=== PATIENT | female | born 1945 | race Caucasian/White ===

== ENCOUNTER 2022-02-16 12:55 | Emergency (ER) | payer MEDICARE, SELFPAY ==
[2022-02-16] VITALS (19 sets, daily range): BP systolic 162–243; BP diastolic 76–116; PULSE 71–92; RESP 18; TEMP 35.8; O2SAT 94–97; BMI 37.5
[2022-02-16] MEDS: ONDANSETRON 4 MG ODT SL (13:29)
[2022-02-16 18:26] LABS: Bacteria Urine Moderate (10-30); RBC Urine 0-1/HPF (0-5/HPF); WBC Urine 0-1/HPF (0-5/HPF)
--- NOTE | 2022-02-16 18:58 | ED_ITS ---
HPI - Extremity Problem General Chief complaint: Extremity Problem,Nontraumatic Stated complaint: Nausea, Leg problems Time Seen by Provider: 02/16/22 18:01 Source: patient Mode of arrival: Wheelchair History of Present Illness HPI Narrative: Patient is a 76-year-old female who is here for evaluation of nausea. She is also here for pain in her left leg. She reports the pain is on the outside of her left leg. Is somewhat difficult for her described as sometimes she states that it is a cramping sensation and other times it is a constant pain. She does not have any pain in her back or in her upper leg. The pain in her leg is actua lly been going on for several months. She has seen her primary doctor. She was told that she may need an MRI. That has not been scheduled. She was seen at an outside emergency department and has a prescription for ketorolac. She states that opioid pain medications make her feel very nauseous. She also has seen a enterprise resource analyst that she had a positive PAULINA but was told that she does not have l upus. She reports no skin rashes. No specific trauma. Related Data Previous Rx's Medication Instructions Recorded tramadol 50 mg tablet 50 mg PO Q8H PRN pain #10 tabs 02/16/22 Allergies Allergy/AdvReac Type Severity Reaction Status Date / Time No Known Drug Allergies Allergy Verified 02/16/22 13:02 Review of Systems Constitutional Constitutional: Reports system reviewed and no additional complaints, except as documented Cardiovascular Cardiovascular: Reports system reviewed and no additional complaints, except as documented Respiratory Respiratory: Reports system reviewed and no additional complaints, except as documented Gastrointestinal Gastrointestinal: Reports system reviewed and no additional complaints, except as documented Musculoskeletal Musculoskeletal: Reports system reviewed and no additional complaints, except as documented Integumentary/Breasts Skin/Breast: Reports system reviewed and no additional complaints, except as documented Neurologic Neurologic: Reports system reviewed and no additional complaints, except as documented Hematologic/Lymphatic On Anticoagulants: No Patient History Social History Smoking Status: Unknown if ever smoked Smoking Status: Unknown if ever smoked alcohol intake frequency: holidays/special occasions only Substance Use Type: does not use Exam Initial Vital Signs Initial Vital Signs: Vital Signs Temperature 96.4 F L 02/16/22 13:02 Pulse Rate 71 02/16/22 13:02 Respiratory Rate 18 12/28/22 13:02 Blood Pressure 204/90 H 02/16/22 13:02 Pulse Oximetry 94 02/16/22 13:02 Oxygen Delivery Method 02/16/22 13:02 Const General: cooperative HENMT Head: normal to inspection and normocephalic Resp Effort & Inspection: normal respiratory effort Auscultation: clear to auscultation bilaterally Cardio Rate: regular rate Rhythm: regular rhythm GI Inspection: normal to inspection Skin General: no rashes or lesions noted Neuro General: patient alert, patient awake and moves all extremities Sensory Exam: no sensory deficits noted Extrem Other: Reported tenderness is on the calf/lateral aspect of the left lower extremity. Not particularly tender to palpation. Her left ankle and left knee are unremarkable. Course Orders Ordered: Discontinued Medications Ondansetron HCl (Ondansetron 4 Mg Odt) 4 mg SL NOW PRN PRN Reason: Nausea And Vomiting Last Admin: 02/16/22 13:29 Dose: 4 mg Documented By: ARAVIND Ondansetron HCl (Ondansetron 4 Mg Odt Prepack) 1 bottle MISC SEEINSTR ONE Stop: 02/16/22 19:26 Last Admin: 02/16/22 19:59 Dose: 1 bottle Documented By: KLAUDIA Tramadol HCl (Tramadol 50 Mg Prepack) 1 bottle MISC SEEINSTR ONE Stop: 02/16/22 19:25 Last Admin: 02/16/22 19:59 Dose: 1 bottle Documented By: KLAUDIA Vital Signs Vital signs: Vital Signs - 8 hr 02/16/22 18:45 02/16/22 18:46 02/16/22 19:00 Pulse Rate 88 Blood Pressure 186/86 H 166/76 H Pulse Oximetry 97 02/16/22 19:00 02/16/22 19:15 02/16/22 19:15 Pulse Rate 82 80 Blood Pressure 162/81 H Pulse Oximetry 96 96 02/16/22 19:27 02/16/22 19:30 Pulse Rate Blood Pressure 200/87 H Pulse Oximetry 97 MDM - Extremity (Nontraumatic) Lab Data Labs: Lab Results 02/16/22 Range/Units 17:20 Urine RBC 0-1/hpf (0-5/HPF) Urine WBC 0-1/hpf (0-5/HPF) Urine Bacteria Moderate (10-30) H (None) Urine Dip Bedside Urine Glucose Negative Bedside Urine Bilirubin - Negative Bedside Urine Ketone + 15 Urine Specific [place] 1.015 Bedside Urine Occult Blood +/- Bedside Urine pH 6.0 Bedside Urine Protein - Negative Bedside Urine Urobilinogen 0.2 Bedside Urine Leukocytes - Negative Esterase MDM Narrative Medical decision making narrative: Symptoms have been going on for months now. She is been evaluated by her primary doctor and also by another emergency department. Today there are no skin changes over the area. Low suspicion for fracture. Low suspicion for DVT. No indication of cellulitis. She recently had labs drawn she states they were unremarkable so that we will hold on that for now. Had a discussion with her regarding the symptoms. Informed her that either we need to try some pain medication and have to deal with the side effects of that versus her having to deal with the discomfort. She states she is never tried tramadol in the past so we will give that a try. Will have the patient contact her primary doctor for follow-up. She was given return precautions. She expressed understanding and agreement. Discharge Plan Departure Patient Disposition: Home Clinical Impression: Left leg pain Activity Restrictions/Additional Instructions: I do recommend that tomorrow you contact your primary doctor for a follow-up to discuss further workup to include ordering the MRI. Return to the emergency department for any new symptoms. Prescriptions: New tramadol 50 mg tablet 50 mg PO Q8H PRN (Reason: pain) Qty: 10 0RF Referrals: Betsey Gr MD [Primary Care Provider] - Stand Alone Forms: Patient Portal/API
[2022-02-16] MEDS: TRAMADOL 50 MG PREPACK 1 BOTTLE MISC (19:59)
[2022-02-16] MEDS: ONDANSETRON 4 MG ODT PREPACK 1 BOTTLE MISC (19:59)
== END 2022-02-16 20:11 | disposition home or self-care (01) ==
PROVIDERS: Emergency Medicine; Emergency Provider Emergency Medicine; Family Provider Family Medicine; PCP Surgery
DX: M79.605 Pain in left leg (principal); R11.0 Nausea
CPT/HCPCS: 81003; 81015; 87077; 87086; 87186; 99283

== ENCOUNTER → 2022-04-16 14:14 | Outpatient (CLI) | payer MEDICARE, SELFPAY ==
--- NOTE | 2022-04-16 14:17 | DI.MRI.S_ITS ---
PROCEDURE: MR LUMBAR SPINE WO CON INDICATIONS: Radiculopathy, lumbar region TECHNIQUE: Noncontrast sagittal T1 spin echo and T2 fast echo, sagittal STIR, and T2 fast spin echo through the lumbar spine. In cases with scoliosis, additional coronal T2 fast spin echo may be performed. COMPARISON: None. FINDINGS: Image quality: Excellent. Alignment and Curvature: There is normal bony alignment. Bone Marrow: Marrow is of normal overall signal. No acute vertebral body compression fractures. Spinal Cord: Conus medullaris terminates at the T12-L1 level. Visualized cord demonstrates normal signal and size. Paraspinous Soft Tissues: No paravertebral masses. T12-L1: Normal appearance. L1-L2: Loss of disc signal is seen. No disc bulge, canal stenosis or neural foraminal narrowing. L2-L3: Loss of disc height and disc signal is seen. Mild broad-based disc bulge is seen. No significant canal stenosis or neural foraminal narrowing. L3-L4: Loss of disc signal is seen. Broad-based disc bulge and bilateral facet arthrosis with hypertrophy of ligamentum flavum is seen. There is mild central canal stenosis, no significant neural foraminal narrowing. L4-L5: Loss of disc signal is seen. Broad-based disc bulge and bilateral facet arthrosis is seen with a 1 x 0.8 x 1.5 cm cystic structure adjacent to medial aspect of left facet joint causing moderate to severe impingement of left neural foramen and [id number] central canal stenosis. Bulging disc likely contacting left L5 nerve root. No significant right-sided neural foraminal narrowing. L5-S1: Broad-based disc bulge and bilateral facet arthrosis is seen without significant central canal stenosis. Mild bilateral neural foraminal narrowing is seen. IMPRESSION: 1. Possible 1 x 0.8 x 1.5 cm left perineural cyst at L4-5 level versus ganglion cyst associated with left L4-5 facet joint causing [id number] central canal stenosis and moderate to severe left-sided neural foraminal narrowing. 2. Mild degenerative disc disease at L2-3, L3-4 and L5-S1 levels as described above. 3. No marrow edema. No acute compression fracture or spondylolisthesis. Dictated by: Elio Comer M.D. on 04/18/2022 at 9:45 Approved by: Elio Comer M.D. on 04/18/2022 at 10:53
== END ==
PROVIDERS: Family Provider Family Medicine; PCP Surgery; Referring Provider Neurological Surgery; Visit Provider Neurological Surgery
DX: M51.16 Intervertebral disc disorders with radiculopathy, lumbar region (principal); M51.17 Intervertebral disc disorders with radiculopathy, lumbosacral region
CPT/HCPCS: 72148

== ENCOUNTER → 2023-01-30 10:27 | Outpatient (CLI) | payer MEDICARE, SELFPAY | PROVIDERS: Family Provider Family Medicine; PCP Internal Medicine; Referring Provider Internal Medicine; Visit Provider Internal Medicine | DX: R06.02 Shortness of breath (principal); Z87.891 Personal history of nicotine dependence; J98.8 Other specified respiratory disorders | CPT/HCPCS: 94060; 94726; 94729 ==

== ENCOUNTER → 2023-07-25 09:00 | Outpatient (CLI) | payer MEDICARE, SELFPAY ==
--- NOTE | 2023-07-25 09:02 | DI.MRI.S_ITS ---
PROCEDURE: MR LUMBAR SPINE WO CON INDICATIONS: Radiculopathy, lumbar region TECHNIQUE: Noncontrast sagittal T1 spin echo and T2 fast echo, sagittal STIR, and T2 fast spin echo through the lumbar spine. In cases with scoliosis, additional coronal T2 fast spin echo may be performed. COMPARISON: [facility], , MR LUMBAR SPINE WO CON, 04/16/2022, 14:29. FINDINGS: Image quality: Adequate. The patient was in too much pain to continue the exam. Alignment and Curvature: Grade 1 L4-5 anterolisthesis, photo optics technician compared to the prior exam. Bone Marrow: Marrow is of normal overall signal. No acute vertebral body compression fractures. Degenerative type 2 Modic changes anteriorly at the L5-S1 level and mild anterior endplate spur formation. Spinal Cord: Conus medullaris terminates at the T12 level. Visualized cord demonstrates normal signal and size. Paraspinous Soft Tissues: No paravertebral masses. T12-L1: Normal appearance. L1-L2: Mild disc desiccation. L2-L3: Disc desiccation mild disc height loss. Mild circumferential disc bulge. L3-L4: Mild disc desiccation. Ligamentum flavum hypertrophy. Mild facet arthropathy. L4-L5: Surgical changes of prior left laminotomy and resolution of perineal or ganglion cyst. There is prominent facet arthropathy, right worse than left, and right-sided ligamentum flavum hypertrophy contributing to moderate central canal stenosis. There has been development of a 1.0 x 0 7 x 0 7 cm nodule in the left paracentral epidural space just above the disc line. This may encroach on the left lateral recess. There is mild bilateral foraminal narrowing. L5-S1: Moderate to severe disc height loss and desiccation. IMPRESSION: Resection of left facet ganglion cyst or perineal cyst at the L4-5 level. Possible disc extrusion versus tiny hematoma in the left anterior epidural space at the L4-5 level may encroach on the left L5 lateral recess nerve root. Slight increase in L4-5 anterolisthesis by about 2 mm. Slight worsening of right dorsal central canal stenosis at the L4-5 level. Dictated by: Swati Urban M.D. on 07/25/2023 at 13:48 Approved by: Swati Urban M.D. on 07/25/2023 at 14:07
== END ==
PROVIDERS: Family Provider Family Medicine; PCP Internal Medicine; Referring Provider Physical Medicine & Rehabilitation; Visit Provider Physical Medicine & Rehabilitation
DX: M51.16 Intervertebral disc disorders with radiculopathy, lumbar region (principal); M47.26 Other spondylosis with radiculopathy, lumbar region; M48.061 Spinal stenosis, lumbar region without neurogenic claudication; M43.16 Spondylolisthesis, lumbar region
CPT/HCPCS: 72148

== ENCOUNTER 2023-09-26 10:00 | Emergency (ER) | payer MEDICARE, SELFPAY ==
[2023-09-26 10:05] VITALS: BP 188/100; PULSE 75; RESP 16; TEMP 36.7; O2SAT 94; BMI 44.2
--- NOTE | 2023-09-26 10:17 | DI.RAD.S_ITS ---
PROCEDURE: XR ANKLE RT MIN 3V INDICATIONS: ankle/lower leg pain TECHNIQUE: 3 views of the ankle were acquired. COMPARISON: None. FINDINGS: Bones: Mildly displaced lateral malleolus fracture. Ankle mortise is normally aligned. No suspicious bony lesions. Soft tissues: No tibiotalar joint effusion. Achilles tendon appears normal. IMPRESSION: Lateral malleolus fracture. Dictated by: Irena Sarkar MD, PhD on 09/26/2023 at 10:57 Approved by: Irena Sarkar MD, PhD on 09/26/2023 at 10:58
--- NOTE | 2023-09-26 10:17 | DI.RAD.S_ITS ---
PROCEDURE: XR TIBIA FUBULA RT 2V INDICATIONS: ankle/lower leg pain TECHNIQUE: 2 views of the tibia and fibula were acquired. COMPARISON: None. FINDINGS: Bones: Mildly displaced distal fibular fracture. Soft tissues: No suspicious soft tissue calcifications or masses. IMPRESSION: Distal fibular fracture. Dictated by: Irena Sarkar MD, PhD on 09/26/2023 at 10:58 Approved by: Irena Sarkar MD, PhD on 09/26/2023 at 10:58
--- NOTE | 2023-09-26 12:20 | ED.LOWEXIN ---
HPI - Extremity Injury (Lower) <Jerman Garcia PA-C - Last Filed: 09/26/23 12:31> General Chief Complaint: Extremity Injury, Lower Stated Complaint: Twisted right ankle Time Seen by Provider: 09/26/23 11:36 Source: patient Mode of arrival: Wheelchair History of Present Illness HPI Narrative: 77-year-old female presents to the ED status post a right lower leg injury sustained just prior to arrival today. Patient states that she has some chronic back issues including a cyst on her back that have caused her legs to give away frequently. Patient states that earlier today, her right leg gave out on her which caused her to just sit down, however she did hear a crunching sound from the right lower leg. Patient denies numbness, tingling, weakness. She endorses minimal pain. Patient uses a walker to ambulate during the night, however not during the day. She has a commode right next to her bed. Patient has a helper who comes in for a few hours once a week, but otherwise lives by herself. She is interested in some home health aide while her leg heals. Related Data Home Medications Medication Instructions Recorded Confirmed amlodipine 5 mg tablet 5 mg PO DAILY 12/27/22 05/16/23 carvedilol 6.25 mg tablet 6.25 mg PO BID 12/27/22 05/16/23 olmesartan 20 mg tablet 20 mg PO DAILY 12/27/22 05/16/23 omeprazole 20 mg capsule,delayed 20 mg PO DAILY 12/27/22 05/16/23 release sennosides 8.6 mg tablet (Natural 8.6 mg PO BID 12/27/22 05/16/23 Senna Laxative) simvastatin 10 mg tablet 10 mg PO BEDTIME 12/27/22 05/16/23 polyethylene glycol 3350 17 17 g PO DAILY 05/16/23 05/16/23 gram/dose oral powder (Miralax) Previous Rx's Medication Instructions Recorded inhalational spacing device #1 ea 02/21/23 (Aerochamber MV spacer) prednisone 20 mg tablet 40 mg (2 x 20 mg) PO DAILY #10 tabs 02/21/23 fluticasone fur. 200 mcg-umeclid 1 inh inhalation DAILY #60 ea 05/17/23 62.5 mcg-vilant 25 mcg inhalat.powder (Trelegy Ellipta) budesonide 160 mcg-glycopyr 9 2 inh inhalation BID #10.7 grams 06/07/23 mcg-formot 4.8 mcg/actuation HFA inhaler (Breztri Aerosphere) albuterol sulfate 90 mcg/actuation 2 inh PO Q4H PRN for dyspnea #51 07/20/23 aerosol inhaler grams Allergies Allergy/AdvReac Type Severity Reaction Status Date / Time No Known Drug Allergies Allergy Verified 09/26/23 10:18 Review of Systems <Jerman Garcia PA-C - Last Filed: 09/26/23 12:31> Constitutional Constitutional: Denies chills, Denies fatigue, Denies fever(s), Denies frequent falls, Denies lethargy and Denies weakness Eyes Eyes: Denies change in vision, Denies eye discharge, Denies irritation and Denies loss of vision ENT Ears, Nose, Mouth, and Throat: Denies change in voice, Denies dizziness, Denies neck pain, Denies sore throat and Denies throat swelling Cardiovascular Cardiovascular: Denies chest pain, Denies irregular heart rhythm, Denies lightheadedness, Denies palpitations, Denies dyspnea, Denies dyspnea on exertion and Denies orthopnea Respiratory Respiratory: Denies cough, Denies dyspnea, Denies dyspnea on exertion and Denies wheezing Gastrointestinal Gastrointestinal: Denies abdominal pain, Denies change in bowel habits, Denies diarrhea, Denies nausea and Denies vomiting Musculoskeletal Musculoskeletal: Denies neck pain and Denies numbness Comments: Right lower leg pain Integumentary/Breasts Skin/Breast: Denies pruritus, Denies erythema, Denies rash and Denies wounds Neurologic Neurologic: Denies behavioral changes, Denies confusion, Denies dizziness, Denies frequent falls, Denies loss of vision, Denies numbness and Denies weakness Psychiatric Psychiatric: Denies anxiety, Denies behavioral changes, Denies confusion, Denies depression, Denies homicidal ideation and Denies suicidal ideation Endocrine Endocrine: Denies fatigue, Denies flushing and Denies palpitations Hematologic/Lymphatic Hematologic/Lymphatic: Denies easy bruising Allergic/Immunologic Allergic/Immunologic: Denies urticaria, Denies throat swelling and Denies wheezing Patient History <Jerman Garcia PA-C - Last Filed: 09/26/23 12:31> Social History Smoking Status: Former smoker Smoking Status: Former smoker alcohol intake frequency: holidays/special occasions only Substance Use Type: does not use Exam <Jerman Garcia PA-C - Last Filed: 09/26/23 12:31> Narrative Exam Narrative: Const General:?cooperative, healthy appearing and comfortable HENCO Head:?normal to inspection Ears:?hearing grossly normal bilaterally Nose:?external nose normal Face and sinus:?normal facial exam and sinuses nontender Mouth:?oral mucosae normal Throat:?posterior oropharynx normal Eyes General:?appearance normal, both eyes and all related structures Neck Neck:?normal visual inspection and no lymphadenopathy noted Resp Effort & Inspection:?normal respiratory effort Auscultation:?clear to auscultation bilaterally Cardio Rate:?regular rate Rhythm:?regular rhythm Musculoskeletal There is swelling and some tenderness to palpation around the lateral malleolus of the right ankle. Neurovascularly intact. Strength and sensation intact. Patient is able to bear weight and walk on the injured foot. Neuro General:?patient alert, patient awake and patient oriented x3 Initial Vital Signs Initial Vital Signs: Vital Signs Temperature 98.0 F 09/26/23 10:05 Pulse Rate 75 09/26/23 10:05 Respiratory Rate 16 09/26/23 10:05 Blood Pressure 188/100 H 09/26/23 10:05 Pulse Oximetry 94 09/26/23 10:05 Oxygen Delivery Method Room Air 09/26/23 10:05 <Shereen Carreon DO - Last Filed: 09/27/23 07:55> Initial Vital Signs Initial Vital Signs: Vital Signs Temperature 98.0 F 09/26/23 10:05 Pulse Rate 75 09/26/23 10:05 Respiratory Rate 16 09/26/23 10:05 Blood Pressure 188/100 H 09/26/23 10:05 Pulse Oximetry 94 09/26/23 10:05 Oxygen Delivery Method Room Air 09/26/23 10:05 Course <EDGARD Horvath Last Filed: 09/26/23 12:31> Orders Ordered: ED Orders 09/26/23 10:17 XR ankle RT min 3V Stat XR tibia fibula RT 2V Stat 09/26/23 11:34 Consult to SAMPLE SHOE INSPECTOR AND REWORKER - Director Community Health Nursing Stat Vital Signs Vital signs: Vital Signs - 8 hr 09/26/23 10:05 Temperature 98.0 F Pulse Rate 75 Respiratory Rate 16 Blood Pressure 188/100 H Pulse Oximetry 94 Oxygen Delivery Method Room Air <Shereen Carreon DO - Last Filed: 09/27/23 07:55> Orders Ordered: ED Orders 09/26/23 10:17 XR ankle RT min 3V Stat XR tibia fibula RT 2V Stat 09/26/23 11:34 Consult to SAMPLE SHOE INSPECTOR AND REWORKER - Director Community Health Nursing Stat Vital Signs Vital signs: Vital Signs - 8 hr 09/26/23 10:05 Temperature 98.0 F Pulse Rate 75 Respiratory Rate 16 Blood Pressure 188/100 H Pulse Oximetry 94 Oxygen Delivery Method Room Air MDM - Extremity Injury (Lower) <Jerman Garcia PA-C - Last Filed: 09/26/23 12:31> MDM Narrative Medical decision making narrative: 77-year-old female presents to the ED status post a right lower leg injury sustained just prior to arrival today. Concern for fracture/dislocation versus musculoskeletal sprain/strain versus other. X-ray shows a mildly displaced lateral malleolus fracture. The ankle mortise is normally aligned. Patient states that she already has a boot at home for that foot from a prior injury. Patient agrees to wear the boot until her fracture heals. Recommend follow-up with ortho as soon as possible. Patient reports minimal pain, declines any prescription pain medications. Social work was consulted to help with getting some home health for patient as she heals. ED return precautions discussed with patient. Patient verbalized understanding. Medical records reviewed: Yes Discharge Plan Departure Patient Disposition: Home Clinical Impression: Fracture of lateral malleolus Qualifiers: Encounter type: initial encounter Fracture type: closed Fracture alignment: displaced Laterality: right Qualified Code(s): S82.61XA - Displaced fracture of lateral malleolus of right fibula, initial encounter for closed fracture Instructions: DI for Malleolar Fracture Activity Restrictions/Additional Instructions: You were evaluated in the ED today for a right lower leg injury. The x-ray does show a lateral malleolus fracture consistent with where you are experience the pain. The treatment for this fracture is to keep your leg in a boot which you already have. You may weight bear as tolerated, however please use your walker at all times to ensure good support and to avoid any further falls. You may take Tylenol for pain. Please follow-up with Dr. Mendoza at [facility] by calling [phone] for further evaluation. Return to the ED if you have worsening symptoms, numbness, tingling, weakness. Prescriptions: No Action (DME) Aerochamber MV Spacer See Rx Instructions .Route Qty: 1 0RF Rx Instructions: As directed albuterol sulfate 90 mcg/actuation HFA aerosol inhaler 2 inh PO Q4H PRN (Reason: for dyspnea) Qty: 51 3RF simvastatin 10 mg tablet 10 mg PO BEDTIME carvedilol 6.25 mg tablet 6.25 mg PO BID Rx Instructions: must administer with a meal/food olmesartan 20 mg tablet 20 mg PO DAILY amlodipine 5 mg tablet 5 mg PO DAILY sennosides [Natural Senna Laxative] 8.6 mg tablet 8.6 mg PO BID omeprazole 20 mg capsule,delayed release(DR/EC) 20 mg PO DAILY prednisone 20 mg tablet 40 mg PO DAILY Qty: 10 0RF polyethylene glycol 3350 [Miralax] 17 gram/dose powder 17 g PO DAILY Trelegy Ellipta 200-62.5-25 mcg blister with device 1 inh inhalation DAILY Qty: 60 11RF Breztri Aerosphere 160-9-4.8 mcg/actuation HFA aerosol inhaler 2 inh inhalation BID Qty: 10.7 11RF Rx Instructions: Rinse mouth after 2nd puff each time. Referrals: Baltazar Victoria MD [Primary Care Provider] - Stand Alone Forms: Patient Portal/API ED Sign-out <Shereen Carreon DO - Last Filed: 09/27/23 07:55> Cosign ED Attending David Attestation: I was immediately available in the department for consultation. Imaging reviewed by myself.
[2023-09-26 12:40] VITALS: BP 144/99; PULSE 76; RESP 16; O2SAT 98
--- NOTE | 2023-09-26 13:11 | CM.SWNOTE ---
ED APPEALS NURSE Note APPEALS NURSE receives consult from RN due to patient's request for HH at home due to ankle fracture today. Patient is 77 y/o female who presents to ED via POV with caregiver after GLF. Patient states her legs gave out and she fell down. Patient's PCP is Dr. Victoria, patient has Medicare and [employer] insurance. 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 APPEALS NURSE enters room to meet with patient. Patient presents as A/Ox4, present with patient is patient's caregiver who assists patient every Monday for 4 hours. Patient resides alone in [place]. Patient states she has family from [place] and they are coming to visit patient next week. Patient endorses she has a FWW at home and usually manages ADLs and can drive but benefits from caregivers' assistance with managing household needs and getting to appts. Caregiver endorses she has a multimedia engineer job elsewhere and is unable to offer patient more hours of care if needed. ED provider recommends that patient utilize FWW while she is recovering from fx. Patient endorses interest in [facility] referral for PT, OT, RN, HH aide and APPEALS NURSE. APPEALS NURSE provides brochure for [facility], senior resource guide and list of caregiver information. APPEALS NURSE calls [facility] and faxes referral (F2F, order and clinicals). [facility] to review referral. Plan: patient to d/c to home with caregiver, [facility] referral in place, patient and family to f/u with higher level of care needs such as increase in caregiver hours if needed. Tameka Dunaway, CUTTER [employer]ET
== END 2023-09-26 12:46 | disposition home or self-care (01) ==
PROVIDERS: Emergency Provider Student in an Organized Health Care Education/Training Program; Family Provider Family Medicine; PCP Internal Medicine
DX: S82.61XA Displaced fracture of lateral malleolus of right fibula, initial encounter for closed fracture (principal); X50.1XXA Overexertion from prolonged static or awkward postures, initial encounter
CPT/HCPCS: 73590; 73610; 99283